=== PATIENT | female | born 1975 ===

== ENCOUNTER 2018-11-09 14:02 | Outpatient (CLI) | payer BC ==
--- NOTE | 2018-11-09 15:40 | ULT ---
THYROID ULTRASOUND: INDICATION: History of palpable abnormality within the neck: TECHNIQUE: Rizvi scale color Doppler images were obtained in the thyroid gland. COMPARISON: No comparisons are available. FINDINGS: Within the inferior to mid posterior aspect of the right thyroid lobe there is a 0.6 x 0.4 x 0.3 cm h ypoechoic ill-defined wider than tall lesion consistent with a TIRADS 4 lesion. No additional thyroi d nodule is evident. Thyroid isthmus measures 0.28 cm. The right thyroid lobe measures 1.6 x 3.9 x 1.4 cm. The left thyroid lobe measures 1.4 x 3.7 x 1.1 cm. 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 Recommend a followup thyroid ul trasound in 1 year to document stability. POS: DOTTIE
== END 2018-11-09 14:03 | disposition home or self-care (01) ==
LOC: SCSULT 14:02
PROVIDERS: ATTEND Otolaryngology Plastic Surgery within the Head & Neck
DX: E04.1 Nontoxic single thyroid nodule (principal)
CPT/HCPCS: 76536